=== PATIENT | female | born 1990 | race Caucasian/White ===

== ENCOUNTER 2023-05-09 12:29 | Emergency (ER) | payer OTHER, SELFPAY ==
[2023-05-09 12:29] VITALS: BP 130/83; PULSE 89; RESP 20; TEMP 36.7; O2SAT 98; BMI 26.2
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
== END 2023-05-09 13:30 | disposition home or self-care (01) ==
PROVIDERS: Emergency Provider Emergency Medicine
DX: Z04.1 Encounter for examination and observation following transport accident (principal)
CPT/HCPCS: 99281